=== PATIENT | female | born 1945 | race Caucasian/White ===

== ENCOUNTER 2019-01-27 06:10 | Emergency (ER) | payer MEDICARE ==
--- NOTE | 2019-01-27 07:13 | EDM.PDOC ---
<Garry Warren - Last Filed: 01/27/19 07:05> ED HPI GENERAL MEDICAL PROBLEM - General Chief Complaint: Syncope Stated Complaint: MEDICAL VIA [facility] Time Seen by Provider: 01/27/19 06:40 Source of Information: Reports: Patient History Limitations: Reports: No Limitations - History of Present Illness INITIAL COMMENTS - FREE TEXT/NARRATIVE: 73-year-old without any chronic medical problems presents with concerns of presyncopal symptoms. She reports that she developed a leg cramp today which prompted her stand up quickly out of bed. She felt dizzy and needed to lay down on the ground. Her then helped her up to chair but she had several more episodes after this where she would feel dizzy when standing. She eventually made her way to the bathroom however fell while in the restroom and struck her head on a toilet paper roll. She then had a large bowel movement. She has felt back to baseline since this time. They called EMS, she was able to ambulate upstairs out of her home. She denies any other recent symptoms such as fevers chills, dark or bloody bowel movements, any chest pain. She has no history of cardiac disease. She has no history of prior similar symptoms. 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, See EMS Report Left Head Scalp Pain Score (Numeric/FACES): 4 Left Hip Pain Score (Numeric/FACES): 5 - Related Data Allergies Allergy/AdvReac Type Severity Reaction Status Date / Time No Known Allergies Allergy Verified 01/27/19 06:29 Home Meds: Home Meds Calc/D3/Mag/Zn/Deckhand/Phillip/[place] [Calcium 600 MG Plus Vit D] 1 each PO DAILY [History] Past Medical History - Past Health History Medical/Surgical History: Denies Medical/Surgical History Musculoskeletal History: Reports: Osteoporosis - Infectious Disease History Infectious Disease History: Reports: Chicken Pox Social & Family History - Tobacco Use Smoking Status *Q: Never Smoker Second Hand Smoke Exposure: No - Caffeine Use Caffeine Use: Reports: Coffee - Recreational Drug Use Recreational Drug Use: No ED ROS GENERAL - Review of Systems Review Of Systems: See Below Constitutional: Reports: No Symptoms HEENT: Reports: No Symptoms Respiratory: Reports: No Symptoms Cardiovascular: Reports: No Symptoms Endocrine: Reports: No Symptoms GI/Abdominal: Reports: No Symptoms : Reports: No Symptoms Musculoskeletal: Reports: No Symptoms Skin: Reports: No Symptoms Neurological: Reports: Dizziness Psychiatric: Reports: No Symptoms Hematologic/Lymphatic: Reports: No Symptoms Immunologic: Reports: No Symptoms ED EXAM, DIZZINESS - Physical Exam Exam: See Below Exam Limited By: No Limitations General Appearance: Alert, No Apparent Distress Ears: Normal External Exam Nose: Normal Inspection, Normal Mucosa Throat/Mouth: Normal Inspection Head Exam: Normocephalic, Other (small left parietal abrasion without underlying cephalohematoma) Neck: Normal Inspection, Full Range of Motion. No: Tender Lateral, Tender Midline Respiratory/Chest: No Respiratory Distress, Lungs Clear Cardiovascular: Regular Rate, Rhythm GI/Abdominal: Normal Bowel Sounds, Soft, Non-Tender Neurological: Alert, Normal Mood/Affect, No Motor/Sensory Deficits, Oriented x 3 Back Exam: Other (small abrasion over the sacrum, no other evidence of trauma) Extremities: Normal Inspection, Normal Range of Motion Psychiatric: Normal Affect, Normal Mood Skin Exam: Warm, Dry Course - Vital Signs Last Recorded V/S: Last Vital Signs Temp 97.3 F 01/27/19 06:15 Pulse 52 L 01/27/19 06:15 Resp 20 01/27/19 06:15 BP 118/63 01/27/19 06:15 Pulse Ox 98 01/27/19 06:15 - Orders/Labs/Meds Labs: Laboratory Tests 01/27/19 01/27/19 Range/Units 07:16 07:16 WBC 6.2 (4.5-11.0) K/uL RBC 4.61 (3.30-5.50) M/uL Hgb 14.2 (12.0-15.0) g/dL Hct 43.5 (36.0-48.0) % MCV 94 (80-98) fL MCH 31 (27-31) pg MCHC 33 (32-36) % Plt Count 151 (150-400) K/uL Sodium 143 (140-148) mmol/L Potassium 3.9 (3.6-5.2) mmol/L Chloride 106 (100-108) mmol/L Carbon Dioxide 28 (21-32) mmol/L Anion Gap 8.6 (5.0-14.0) mmol/L BUN 22 H (7-18) mg/dL Creatinine 0.7 (0.6-1.0) mg/dL Est Cr Clr Drug Dosing 58.67 mL/min Estimated GFR (MDRD) > 60 (>60) Glucose 95 (74-106) mg/dL Calcium 8.9 (8.5-10.1) mg/dL Phosphorus 3.8 (2.5-4.9) mg/dL Magnesium 2.0 (1.8-2.4) mg/dL - Re-Assessments/Exams Free Text/Narrative Re-Assessment/Exam: 73-year-old presents after several syncopal/presyncopal episodes. Does not sound that she ever truly lost consciousness. She has a clear trigger of likely orthostatic symptoms after rising out of bed quickly, perhaps some element of increased vagal tone in the setting of her bowel movement. Her 12-lead ECG is not concerning. She has been stable on telemetry. As far as traumatic injuries, she does have an abrasion on her head which will not repair we will obtain a CT of the head and neck. Will obtain basic screening labs and observe her in the ED on telemetry prior to an ambulatory trial. If workup is unremarkable believe she is safe for discharge as her symptoms do not have any high-risk features. She is signed out to my colleague Dr Hogue at end of shift. 01/27/19 07:10 Departure - Departure Disposition: Home, Self-Care 01 Clinical Impression: Syncope Qualifiers: Syncope type: unspecified Qualified Code(s): R55 - Syncope and collapse - Discharge Information Referrals: PCP,None [Primary Care Provider] - Forms: ED Department Discharge Additional Instructions: Follow-up with your primary care as needed call return to the emergency department worsening of symptoms <Alverto Hogue - Last Filed: 01/27/19 08:44> ED HPI GENERAL MEDICAL PROBLEM Left Head Scalp Pain Score (Numeric/FACES): 4 Left Hip Pain Score (Numeric/FACES): 5 Lower Back Pain Score (Numeric/FACES): 2 Departure - Departure Time of Disposition: 08:43 Condition: Good - Assessment/Plan Plan: Assessment Acuity = acute Site and laterality = syncopal event with superficial head injury Etiology = probable vasovagal Manifestations = none Location of injury = Home Lab values = CBC, BMP all within normal limits CT scan head and neck show no acute process she does have an old left basilar the Coumadin or infarct Plan Took over care from Dr. Spanier at 7 AM she was able ambulate in the emergency department without difficulty plan is discharge home follow-up primary care as needed This note was dictated using [employer] voice recognition software please call with any questions on syntax or grammar.
--- NOTE | 2019-01-27 08:11 | CRLCT ---
Final Report: INDICATION: Fall. TECHNIQUE: Noncontrast head CT scan. Coronal sagittal reformatted images obtained No comparison studies are available. Findings: Axial noncontrast images through the brain parenchyma demonstrates no acute intracranial hemorrhage or mass. No midline shift. No abnormal extra-axial air fluid collections. Paranasal sinuses mastoid air cells skull and scalp appear unremarkable. IMPRESSION: 1. No acute intracranial hemorrhage or mass. Left basal ganglia infarct. Signed by: Funmi Perera MD @01/27/2019 8:09:56 AM Addendum: Impression should state that there is a left basal ganglia lacunar infarct. Please note that all CT scans at this facility use dose modulation, iterative reconstruction, and/or weight-based dosing when appropriate to reduce radiation dose to as low as reasonably achievable. Dictated by Funmi Perera MD @ Jan 27 2019 8:10AM Signed by: Funmi Perera @ 01/27/2019 8:10:22 AM (Electronic Signature) ----ADDENDUM---- Signed by: Funmi Perera MD @01/27/2019 4:24:38 PM (Electronic Signature) Addendum: Impression should state that there is a left basal ganglia lacunar infarct. Please note that all CT scans at this facility use dose modulation, iterative reconstruction, and/or weight-based dosing when appropriate to reduce radiation dose to as low as reasonably achievable. Dictated by Funmi Perera MD @ Jan 27 2019 8:10AM Signed by Dr. Funmi Perera @ Jan 27 2019 8:10AM MTDD
--- NOTE | 2019-01-27 08:15 | CRLCT ---
INDICATION: FALL Technique: Non-contrast CT scan of the cervical spine with reformatted images obtained. Findings: Normal height and alignment of the cervical vertebral bodies. No evidence of acute fracture or dislocation. Degenerative changes of the mid cervical spine. No other abnormalities identified. Impression: No evidence of acute fracture or dislocation of the cervical spine. Dictated by: Joaquín Perera MD @ 01/27/2019 08:13:18 (Electronically Signed)
== END 2019-01-27 08:52 | disposition home or self-care (01) ==
LOC: JP.ED 06:10
DX: S30.810A Abrasion of lower back and pelvis, initial encounter (principal); R55 Syncope and collapse; W22.8XXA Striking against or struck by other objects, initial encounter; Y92.002 Bathroom of unspecified non-institutional (private) residence as the place of occurrence of the external cause
CPT/HCPCS: 36415; 70450; 72125; 80048; 83735; 84100; 85027; 99284; 99284-25

== ENCOUNTER 2021-11-24 14:53 | Emergency (ER) | payer MEDICARE ==
[2021-11-24] MEDS ORDERED: Sodium Chloride 0.9% 10 ML Syringe FLUSH PRN (15:12)
[2021-11-24] MEDS ORDERED: Diltiazem 25 MG/5 ML SDV IVPUSH ONE (15:23)
[2021-11-24] MEDS ORDERED: Sodium Chloride 0.9% 1,000 ML IV SCH (15:30)
[2021-11-24] MEDS ORDERED: Diltiazem 100 MG in Sodium Chloride 0.9% 100 ML IV SCH (16:00)
[2021-11-24] MEDS ORDERED: Propofol 200 MG/20 ML SDV ONE (18:22)
== END 2021-11-24 19:19 | disposition home or self-care (01) ==
LOC: JP.ED 14:53
DX: R55 Syncope and collapse (principal); R00.0 Tachycardia, unspecified; Z91.040 Latex allergy status; Z91.011 Allergy to milk products
CPT/HCPCS: 36415; 80048; 83735; 84439; 84443; 84484; 85025; 92960; 96365; 96366; 99284; J2704; J3490; J7030

== ENCOUNTER 2022-08-12 09:52 | Day surgery (SDC) | payer MEDICARE ==
[2022-08-12] MEDS ORDERED: Sodium Chloride 0.9% 1,000 ML IV SCH (10:30)
[2022-08-12] MEDS ORDERED: Propofol 200 MG/20 ML SDV ONE (10:38)
== END 2022-08-12 12:50 | disposition home or self-care (01) ==
LOC: JP.SDS 09:52
PROVIDERS: ATTEND Surgery
DX: Z12.11 Encounter for screening for malignant neoplasm of colon (principal); D12.2 Benign neoplasm of ascending colon
CPT/HCPCS: 45385; J2704; J7030; 88305

== ENCOUNTER 2025-06-14 11:53 | Emergency (ER) | payer MEDICARE ==
[2025-06-14 12:31] LABS: BASOPHILS ABSOLUTE AUTO 0.04 K/uL (0.00-0.10); BASOPHILS PERCENT AUTO 0.6 % (0.1-1.3); EOSINOPHILS ABSOLUTE AUTO 0.07 K/uL (0.00-0.40); EOSINOPHILS PERCENT AUTO 1.0 % (0.0-5.4); IMMATURE GRAN ABSOLUTE AUTO 0.02 K/uL (0.00-0.23); IMMATURE GRAN PERCENT AUTO 0.3 % (0.0-0.7); LYMPHOCYTES ABSOLUTE AUTO 1.26 K/uL (0.8-3.3); LYMPHOCYTES PERCENT AUTO 18.2 % (11.4-47.7); MONOCYTES ABSOLUTE AUTO 0.69 K/uL (0.20-0.90); MONOCYTES PERCENT AUTO 10.0 % (3.3-12.6); NEUTROPHILS ABSOLUTE AUTO 4.84 K/uL (1.0-7.6); NEUTROPHILS PERCENT AUTO 69.9 % (40.0-78.1); PLATELET COUNT,PLT 198 K/uL (130-375); RED BLOOD CELL COUNT 5.05 M/uL (3.77-5.24); WHITE BLOOD CELL COUNT,WBC 6.9 K/uL (3.2-11.0)
[2025-06-14 12:46] LABS: INR 1.0
[2025-06-14 12:57] LABS: A/G RATIO 1.1 (1.2-2.2); ALANINE AMINOTRANSFERASE,ALT 27 U/L (12-78); ASPARTATE AMNIOTRANSFERASE,AST 22 U/L (15-37); BILIRUBIN TOTAL 0.4 mg/dL (0.2-1.0); BLOOD UREA NITROGEN,BUN 19 mg/dL (7-18); CARBON DIOXIDE,CO2 31 mmol/L (21-32); CHLORIDE,CL 98 mmol/L (100-108); CREATININE 0.5 mg/dL (0.6-1.0); ESTIMATED GFR 94 mL/min (>60); GLUCOSE RANDOM 95 mg/dL (74-106); POTASSIUM,K 4.2 mmol/L (3.6-5.2); PROTEIN TOTAL,TP 7.1 g/dL (6.4-8.2); SODIUM,NA 137 mmol/L (140-148)
[2025-06-14] MEDS: Diltiazem 25 MG/5 ML SDV IVPUSH ONE ×3 (12:58→18:51)
[2025-06-14 13:24] LABS: APPEARANCE,URINE CLEAR (CLEAR); GLUCOSE,URINE NEGATIVE (NEGATIVE); OCCULT BLOOD,URINE TRACE-INTACT (NEGATIVE)
[2025-06-14 13:48] LABS: SQUAMOUS EPITHELIAL CELLS,UR FEW /HPF
[2025-06-14] MEDS ORDERED: Propofol 200 MG/20 ML SDV ONE ×2 (17:30→17:31)
[2025-06-14] MEDS: Diltiazem 100 MG in Sodium Chloride 0.9% 100 ML IV SCH (18:28)
[2025-06-14] MEDS: Diltiazem 25 MG/5 ML SDV ONE (19:46)
== END 2025-06-14 21:15 ==
LOC: JP.ED 11:53
DX: I48.91 Unspecified atrial fibrillation (principal); Z91.040 Latex allergy status; Z91.011 Allergy to milk products; Z79.01 Long term (current) use of anticoagulants
CPT/HCPCS: 00410; 36415; 71045; 80053; 80143; 80179; 80307; 81001; 83605; 85025; 85610; 93005; 96361; 96365; 96366; 96376; 99284; 99285; J2704; J3490; J7030